=== PATIENT | female | born 1945 | race Caucasian/White ===

== ENCOUNTER 2020-12-02 09:29 | Day surgery (SDC) | payer MEDICARE ==
[2020-12-01 18:54] VITALS: BP 105/52
[~2020-12-02] VITALS: Ht 160 cm; Wt 68.5 kg
[2020-12-02] MEDS ORDERED: ONDANSETRON 4MG/2ML VIAL IV ONE ×2 (10:30→13:45)
[2020-12-02] MEDS ORDERED: NS 1,000 ML IV ONE (10:30)
--- NOTE | 2020-12-02 11:02 | REP ---
INDICATION: dizziness. COMPARISON: None. TECHNIQUE: CT brain performed in the axial plane. Coronal reconstruction images are performed. FINDINGS: The ventricles are normal in size and position.. There is no midline shift or mass effect. Chan-white differentiation is well maintained. There is no acute intracranial hemorrhage or extra-axial fluid collection. There is a cavum septum pellucidum and cavum vergae, normal variants. Bone window examination is unremarkable. The visualized mastoid air cells and paranasal sinuses are clear. 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 IMPRESSION: Negative noncontrast CT brain. <Electronically signed by Romaine Chan > 12/02/20 1050
[2020-12-02 11:07] LABS: BASO % 0.2 % (0.0-1.0); HEMATOCRIT 39.9 % (36.0-47.0); HEMOGLOBIN 13.1 g/dl (12.0-15.5); LYMPH # 0.6 10^3/uL (1.5-5.0); LYMPH % 4.5 % (24.0-44.0); MEAN CORPUSCULAR HEMOGLOBIN 31.3 pg (27.0-33.0); MEAN CORPUSCULAR HGB CONC 32.8 g/dl (32.0-36.5); MEAN CORPUSCULAR VOLUME 95.5 fl (80.0-96.0); MONO # 1.5 10^3/uL (0.0-0.8); MONO % 10.6 % (2.0-8.0); NEUTROPHILS # 11.8 10^3/uL (1.5-8.5); NEUTROPHILS % 84.3 % (36.0-66.0); PLATELET COUNT, AUTOMATED 245 10^3/uL (150-450); RED BLOOD COUNT 4.18 10^6/uL (4.00-5.40)
[2020-12-02] MEDS ORDERED: SIMV40TA20 PO (11:19)
[2020-12-02] MEDS ORDERED: VITACAP8 PO (11:19)
[2020-12-02] MEDS ORDERED: PREM0.3T2 PO (11:19)
[2020-12-02] MEDS ORDERED: MAGN400C PO (11:19)
[2020-12-02] MEDS ORDERED: MELO15TA28 PO (11:19)
[2020-12-02] MEDS ORDERED: GLUCTAB64 PO (11:19)
[2020-12-02] MEDS ORDERED: VITAD400CA FT (11:19)
[2020-12-02] MEDS ORDERED: D-40TAB2 PO (11:19)
[2020-12-02] MEDS ORDERED: CALCTAB89 PO (11:19)
[2020-12-02] MEDS ORDERED: GNP1000T11 PO (11:19)
[2020-12-02 11:29] LABS: BLOOD UREA NITROGEN 17 MG/DL (7-18); CALCIUM LEVEL 8.6 MG/DL (8.8-10.2); CARBON DIOXIDE LEVEL 27 MEQ/L (21-32); CHLORIDE LEVEL 106 MEQ/L (98-107); CREATININE FOR GFR 0.88 MG/DL (0.55-1.30); GLOMERULAR FILTRATION RATE > 60.0 (>39); GLUCOSE, FASTING 128 MG/DL (70-100); POTASSIUM SERUM 4.4 MEQ/L (3.5-5.1); SODIUM LEVEL 140 MEQ/L (136-145)
[2020-12-02] MEDS ORDERED: ISOVUE-370 76% 100ML VIAL As Ordered ONE (11:54)
--- NOTE | 2020-12-02 12:41 | REP ---
INDICATION: right abd pain, Hx diverticulosis COMPARISON: None. TECHNIQUE: CT Scan of the abdomen and pelvis was performed with intravenous administration of 100 cc of Isovue 370, without oral contrast. Sagittal and coronal reconstruction images are performed. FINDINGS: Lung bases: There are mild fibro atelectatic changes. Liver: 2 cysts are seen in the liver, both measuring in the range of 1.5 cm in diameter. Gallbladder: Unremarkable. Spleen: Normal. Adrenals: Normal. Pancreas: Normal. Kidneys: Normal. Small and large bowel: There is diffuse sigmoid diverticulosis without definite diverticulitis. There is no free air or obstruction. Free fluid: Mild free fluid adjacent to the inflamed appendix. Abdominal aorta: No aneurysm or dissection. Adenopathy: None. Appendix: There are 2 subcentimeter appendicoliths in the proximal appendix. The more distal appendix is dilated and thickened, with surrounding inflammatory density of the fat and mild adjacent free fluid, consistent with acute appendicitis.. Osseous structures: There are degenerative changes of the spine without compression deformity. Pelvis: No mass. IMPRESSION: Acute appendicitis with mild free fluid adjacent to the appendix. No free air. <Electronically signed by Romaine Chan > 12/02/20 [id number]
[2020-12-02] MEDS ORDERED: fentaNYL 100 MCG/2 ML INJECTION (J3010) IV PRN ×2 (13:45→18:00)
[2020-12-02 14:15] LABS: RSV AMPLIFICATION NEGATIVE (NEGATIVE)
[2020-12-02] MEDS ORDERED: KETOROLAC 30 MG/ML 1ML VIAL IV PRN (14:40)
[2020-12-02] MEDS: NS 1,000 ML IV SCH ×2 (14:40→22:33)
[2020-12-02] MEDS ORDERED: ONDANSETRON 4MG/2ML VIAL IV PRN ×2 (14:40→18:00)
[2020-12-02] MEDS ORDERED: MORPHINE 2 MG/ML 1ML VIAL (J2270) IV PRN (14:40)
[2020-12-02] MEDS ORDERED: PIPERACILLIN/TAZOBACTAM SOD 3.375 GM in D5W MINI-BAG PLUS 50 ML IV SCH (15:00)
[2020-12-02] MEDS ORDERED: CYAN100050 PO (15:11)
[2020-12-02] MEDS ORDERED: D31000TA2 PO (15:11)
[2020-12-02] MEDS ORDERED: HOME MED LIST COMPLETE! XX SCH (15:15)
[2020-12-02] MEDS ORDERED: SUGAMMADEX SODIUM 500 MG/5 ML VIAL (BRIDION) As Ordered ONE (15:22)
[2020-12-02] MEDS ORDERED: fentaNYL 100 MCG/2 ML INJECTION (J3010) As Ordered ONE (15:22)
[2020-12-02] MEDS ORDERED: MIDAZOLAM INJ 2MG/2ML VIAL (J2250 PER 1MG) As Ordered ONE (15:22)
[2020-12-02] MEDS ORDERED: dexameTHASONE 4 MG/ML 1ML VIAL (J1100 PER 1MG) As Ordered ONE (15:22)
[2020-12-02] MEDS ORDERED: ONDANSETRON 4MG/2ML VIAL As Ordered ONE (15:22)
[2020-12-02] MEDS ORDERED: LIDOCAINE 2% 100MG/5ML SDV (FOR ANES.) As Ordered ONE (15:23)
[2020-12-02] MEDS ORDERED: ePHEDrine SULFATE 25 MG/5 ML(5MG/ML) SYRINGE As Ordered ONE (15:23)
[2020-12-02] MEDS ORDERED: propofoL 200 MG/20 ML VIAL As Ordered ONE (15:23)
[2020-12-02] MEDS ORDERED: ROCURONIUM BROMIDE 50 MG/5 ML VIAL As Ordered ONE (15:23)
[2020-12-02] MEDS ORDERED: PHENYLephrine 500MCG 5ML (100MCG/ML) SYRINGE As Ordered ONE (15:23)
[2020-12-02] MEDS ORDERED: BUPIVACAINE HCL 0.25% 30ML VIAL As Ordered ONE (15:49)
[2020-12-02] MEDS ORDERED: ZOSYN 3.375GM VIAL (J2543) As Ordered ONE (16:44)
[2020-12-02] MEDS ORDERED: ACETAMINOPHEN 1000MG 100ML IV BTL (OFIRMEV) (J0131 PER 10MG) As Ordered ONE (16:50)
[2020-12-02] MEDS ORDERED: SIMVASTATIN 40 MG TAB PO SCH (18:00)
[2020-12-02] MEDS ORDERED: oxyCODONE 5MG TAB PO PRN (18:00)
[2020-12-02] MEDS ORDERED: LR 1,000 ML IV SCH (18:00)
[2020-12-02] MEDS ORDERED: ACETAMINOPHEN TAB 650MG DOSE (2X325MG) PO PRN (18:20)
[2020-12-02] MEDS ORDERED: NORCO, ANEXSIA 5/325MG TABLET (HYDROcodone/ACETAMINOPHEN) PO PRN (18:20)
[2020-12-02 18:47] VITALS: BP 105/52
[2020-12-02 19:15] VITALS: BP 108/52
[2020-12-02 19:45] VITALS: BP 105/53
[2020-12-02 21:00] VITALS: BP 110/58
[2020-12-02 22:00] VITALS: BP 115/45
[2020-12-02] MEDS: PIPERACILLIN/TAZOBACTAM SOD 3.375 GM in D5W MINI-BAG PLUS 50 ML IV SCH (22:32)
[2020-12-02 23:00] VITALS: BP 113/71
[2020-12-03] VITALS: BP 109/70
[2020-12-03 02:00] VITALS: BP 111/65
[2020-12-03] MEDS: PIPERACILLIN/TAZOBACTAM SOD 3.375 GM in D5W MINI-BAG PLUS 50 ML IV SCH (05:51)
[2020-12-03 06:00] VITALS: BP 107/59
--- NOTE | 2020-12-03 07:20 | RO ---
OPERATIVE NOTE DATE OF OPERATION: 12/02/2020 PREOPERATIVE DIAGNOSIS: Acute appendicitis. POSTOPERATIVE DIAGNOSIS: Acute appendicitis. PROCEDURE PERFORMED: Laparoscopic appendectomy. SURGEON: Jalen Morel MD ANESTHESIA: General INDICATIONS FOR THE PROCEDURE: The patient is a 75-year-old woman who presented to the emergency department with a roughly 10-12 hour history of abdominal pain primarily on the right mid to lower abdomen. She had had some nausea and vomiting and a little bit of loose stool last evening. In the emergency department, she was found to have some mild elevation of her white blood cell count and a CT scan showed changes consistent with acute appendicitis with two appendicoliths noted within the inflamed appendix. She is now for laparoscopic appendectomy. OPERATIVE PROCEDURE: The patient was brought to the operating room and placed on the table in a supine position. She was placed under general endotracheal anesthesia. The patient's abdomen was prepped and draped in a sterile fashion. 1/4% Marcaine was infiltrated at each of the trocar sites as needed. The short supraumbilical midline incision was made and deepened to the fascia. A Veress needle was inserted and after a positive hanging drop test, the abdomen was inflated with carbon dioxide gas. A 12 mm port was placed through the fascia at this point. The laparoscope was inserted. Initial examination showed some insufflation of gas into the falciform ligament tracking somewhat into the anterolateral abdominal wall. There was no evidence otherwise of a Veress needle injury. The visualized portions of the small and large bowel appeared normal. The liver appeared normal. The patient was tilted to a slight Trendelenburg position and rolled slightly to the left. Two 5 mm ports were placed in the left lower quadrant. Graspers were inserted. The small bowel was moved to the left side of the abdomen and the appendix was identified. The appendix was obviously acutely inflamed coated with some greenish-yellow exudate. It was lightly adherent to the retroperitoneum and these loose attachments were broken apart bluntly. The appendix was grasped and elevated. The mesoappendix was divided initially using the hook cautery. The appendicular vessels were identified and were thoroughly cauterized and then divided. Dissection was carried down to the base of the appendix which was uninflamed at its junction with the cecum. The appendix was stapled and resected with an endoscopic linear cutter stapler with a blue load. The appendix was placed in an Endopouch. The right lower quadrant was cleared of a minimal amount of blood using an inserted sponge which was then removed. Inspection showed no evidence of bleeding and the appendiceal stump was nicely stapled. The patient was returned to a flat position. The abdomen was deflated and the trocars were removed. It was necessary to extend the fascial incision slightly above the umbilicus to remove the appendix. This was sent for permanent pathology. The fascia was closed with a running suture of 2-0 PDS. The skin incisions were all closed with buried 4-0 Vicryl and Steri-Strips. Light dressings were applied. The patient tolerated the procedure well without apparent complication. She was awakened in the operating room, extubated and moved to the recovery room in stable condition. SILVANA
[2020-12-03] MEDS ORDERED: MELOXICAM (MOBIC) 7.5 MG TAB PO SCH (09:00)
[2020-12-03 10:00] VITALS: BP 108/47
--- NOTE | 2020-12-03 16:48 | IPN ---
PROGRESS NOTE DATE: 12/03/2020 HISTORY: Patient is now postoperative day #1 from a laparoscopic appendectomy for acute appendicitis. The appendix was not perforated. She has done well so far postoperatively. She denies any significant pain this morning and has had no nausea or vomiting. She is tolerating liquids and is ready to try some food. VITAL SIGNS: Show that she has been afebrile since surgery. Her pulse is in the 60s and 70s and her blood pressure is normal. INTAKE AND OUTPUT: Shows that she had 2500 in yesterday with 200 of urine recorded yesterday and 300 recorded so far today. She is taking liquids well. PHYSICAL EXAMINATION: GENERAL: The patient is sitting propped up in the hospital bed looking quite comfortable. She is alert and oriented. HEART EXAM: Shows a regular rhythm. LUNGS: Clear. ABDOMEN: Is perhaps mildly distended. She has active bowel sounds. The abdomen is soft throughout with expected mild tenderness. Her dressings are all clean and dry. IMPRESSION: Patient is doing well now one day postoperatively from laparoscopic appendectomy for acute appendicitis. She appears ready for discharge home. She does live in [place], [place], which is west [facility]. She reports it is about a two [place] [address] home. [place]. PLAN: The patient will be discharged home today. She was counseled that she can take a diet as tolerated. She was advised that she can remove her bandages and shower when she is 24 hours out from her surgery, which would be this evening. She should leave the Steri-Strips in place. She was advised that her incisions are closed with absorbable sutures and no stitches need to be removed. She should expect a small amount of bruising, but if she notes redness or tenderness or fever or chills, she should contact her doctor for evaluation. I do not believe she needs to make a two hour trek to [place] for a postoperative visit. I advised to inform her primary physician at home that she had her appendix out and she can probably arrange followup just to have her wounds looked at in the next week or so. She is not taking any pain medicine this morning and I advised her to resume her usual meloxicam and she can take some Tylenol in addition if she needs to. She is comfortable with this plan. She can pursue light activity, but was advised against any strenuous activity for at least the next two weeks although a month is probably better. She can certainly call my office as needed for any further information or if there are problems. SILVANA
--- NOTE | 2020-12-03 19:58 | ECGEPIP ---
[facility] - ED Test Date: 2020-12-02 Pat Name: RENA REYNOSO Department: Room: - Gender: Female [employer] Department Supervisor: : [id number] Requested By: Ian Flannery Order Number: [id number] Reading MD: Patricia Hui Measurements Intervals [place] Rate: 88 P: 71 MD: 174 QRS: -61 QRSD: 92 T: 92 QT: 348 QTc: 421 Interpretive Statements Normal sinus rhythm Incomplete right bundle branch block Left anterior fascicular block Nonspecific T wave abnormality No prior Electronically Signed on 12-03-2020 19:57:42 EDT by Patricia Hui
== END 2020-12-03 13:43 | disposition home or self-care (01) ==
LOC: M ED 09:29 → M SDC 09:30 → M ED INP 14:40 → UNDOADMIN 14:40 → ENRESERV 14:50 → M MSPAV 18:43 → M ED INP 18:43 → M MSPAV 18:43 → M SDC 12-03 13:43 → UNDODISIN 12-03 13:43
PROVIDERS: ATTEND Surgery
DX: K35.890 Other acute appendicitis without perforation or gangrene (principal); E78.5 Hyperlipidemia, unspecified; Z79.899 Other long term (current) drug therapy; Z88.2 Allergy status to sulfonamides
CPT/HCPCS: 44970; 70450; 74177; 80048; 85025; 87631; 88304; 93005; 96361; 96374; 96375; 96376; 99285; J0131; J1100; J2250; J2370; J2405; J2543; J3010; Q9967